=== PATIENT | female | born 1975 | race Caucasian/White ===

== ENCOUNTER 2020-07-14 12:28 | Outpatient (REF) | payer OTHER, SELFPAY ==
--- NOTE | ~2020-07-14 | MM_ITS ---
EXAMINATION: MM SCREENING DIGITAL BREAST TOMOSYNTHESIS, BILATERAL CLINICAL INFORMATION: Screening. Asymptomatic. The lifetime risk of breast cancer based on the Tyrer-Cuzick Model is 6.9%. COMPARISON: Mammography: May 22, 2018 and studies dating back to May 17, 2016 TECHNIQUE: Digital breast tomosynthesis is performed in both the craniocaudal and mediolateral oblique views along with computer-aided detection (CAD). Synthesized 2D images are generated from the tomosynthesis. FINDINGS: There are scattered areas of fibroglandular density (ACR BI-RADS breast composition Category b). There are no significant masses, abnormal calcifications, or other abnormalities. MM/MM tomosynthesis screening BI IMPRESSION: There are no significant changes from prior study. ASSESSMENT: BI-RADS 1: Negative RECOMMENDATION: Routine annual mammography screening. This patient's information was entered into a reminder system with a target due date for their next mammogram.
== END 2020-07-14 12:29 | disposition home or self-care (01) ==
LOC: HO.MAMMO 12:28
PROVIDERS: Visit Provider Internal Medicine
DX: Z12.31 Encounter for screening mammogram for malignant neoplasm of breast (principal)
CPT/HCPCS: 77063; 77067

== ENCOUNTER 2020-09-08 09:42 | Outpatient (REF) | payer OTHER, SELFPAY ==
[2020-09-08 12:12] LABS: Vitamin D 25-OH Total 29.2 ng/mL (>30)
[2020-09-08 12:20] LABS: Alanine Aminotransferase 10 U/L (0-31); Anion Gap 14 (12-20); Aspartate Amino Transferase 15 U/L (5-31); Blood Urea Nitrogen 10 mg/dL (9-16); Calcium 9.7 mg/dL (8.4-10.2); Carbon Dioxide 23 mmol/L (22-29); Chloride 107 mmol/L (96-108); Cholesterol 222 mg/dL; Estimated Glomerular Filt Rate > 60; Glucose Fasting 83 mg/dL (60-99); HDL Cholesterol 47 mg/dL; LDL Cholesterol Calculated 142 mg/dl; Potassium 4.3 mmol/L (3.3-5.1); Sodium 140 mmol/L (135-145); Triglycerides 165 mg/dL
== END 2020-09-08 09:43 | disposition home or self-care (01) ==
LOC: HO.HMGCLDS 09:42
PROVIDERS: PCP Internal Medicine; Visit Provider Internal Medicine
DX: Z00.00 Encounter for general adult medical examination without abnormal findings (principal); I10 Essential (primary) hypertension; I99.8 Other disorder of circulatory system; Z82.49 Family history of ischemic heart disease and other diseases of the circulatory system
CPT/HCPCS: 36415; 80048; 80061; 82306; 84450; 84460

== ENCOUNTER → 2020-09-27 14:49 | Outpatient (BNVA) | payer OTHER, SELFPAY | PROVIDERS: PCP Internal Medicine; Referring Provider Internal Medicine; Visit Provider Internal Medicine ==

== ENCOUNTER 2020-10-10 08:29 | Outpatient (REF) | payer OTHER, SELFPAY ==
--- NOTE | ~2020-10-10 | US_ITS ---
EXAMINATION: ULTRASOUND ABDOMINAL AORTA CLINICAL INFORMATION: Family history of aortic dissection COMPARISON: None TECHNIQUE: Doppler color and grayscale evaluation of the abdominal aorta and common iliac arteries FINDINGS: The abdominal aorta is normal in caliber. No aneurysm is seen. The proximal abdominal aorta measures 2.4 x 2.4 cm, mid 1.8 x 1.7 cm and distal 1.8 x 1.8 cm in AP and transverse dimension. Aortic peak velocity is normal measuring 84 cm/s. The visualized bilateral common iliac arteries are normal in caliber measuring 1.1 x 1 cm bilaterally. US/US abdominal aortic aneurysm IMPRESSION: Normal caliber abdominal aorta. No aneurysm is seen.
== END 2020-10-10 08:30 | disposition home or self-care (01) ==
LOC: HO.HMGCX 08:29
PROVIDERS: PCP Internal Medicine; Visit Provider Internal Medicine
DX: I71.4 Abdominal aortic aneurysm, without rupture (principal); Z82.49 Family history of ischemic heart disease and other diseases of the circulatory system
CPT/HCPCS: 76706

== ENCOUNTER → 2020-11-03 07:25 | Outpatient (REF) | payer OTHER, SELFPAY ==
--- NOTE | 2020-11-03 07:27 | CA_ITS ---
Transthoracic Echocardiogram Patient (Last, First, Middle): Mukund Mo, Gender: Female Date of : 1975 Age: 45 Procedure Date: 11/03/2020 Procedure Type: Transthoracic Echocardiogram Location: OP Height: 157.48 cm Weight: 75.75 kg BSA: 1.77 m2 Heart Rate: bpm BP: 130 / 80 mmHg Sql Server Dba: JOSÉ MIGUEL Dove MD: Chang Ramírez MD Criminology Professor: Adrian Lanza MD Symptoms: Z82.49 - Family history of ischemic heart disease and oth... Study Quality: Fair ECG Rhythm: Sinus Conclusions: - Essentially normal study Findings Left Ventricle Normal left ventricular size, thickness, and systolic function. The visually estimated ejection fraction is between 60-65%. Diastolic function is normal for age. Right Ventricle Normal right ventricular cavity size and systolic function. Atria Both atria are normal in size. There is no evidence of interatrial shunt. Aortic Valve Normal aortic valve structure and function. There is no aortic valve stenosis. There is no aortic valve regurgitation. Mitral Valve Normal mitral valve structure and function. There is trace mitral valve regurgitation. There is no mitral valve stenosis. Pulmonic Valve The pulmonic valve is likely normal. Tricuspid Valve Normal tricuspid valve structure. There is trace tricuspid valve regurgitation. The right ventricular systolic pressure is normal. The right ventricular systolic pressure is 20 mmHg. Normal right atrial pressure. There is no evidence of pulmonary hypertension. Great Vessels All visible segments of the aorta are normal in size. The pulmonary artery was not well visualized. Venous The inferior vena cava is normal in size and collapses greater than 50% with inspiration. Pericardium/Pleural There is no evidence of pericardial effusion. Prior Study Comparison No prior study available for comparison. Measurements 2D Linear Measurements IVSd: 1.00 0.6-0.9/0.6-1.0 cm LVIDd: 3.65 3.9-5.3/4.2-5.9 cm LVIDd Index: 2.06 2.4-3.2/2.2-3.1 cm/m2 LVIDs: 2.43 2.0-3.6 cm LVPWd: 1.05 0.7-1.1 cm Ao Root: 3.00 2.1-3.5 cm LA Diam: 2.80 2.7-3.8/3.0-4.0 cm LAIDs Index: 1.58 1.5-2.3 cm/m2 LV Mass: 142.03 67-162/88-224 g LV Mass Index: 80.24 43-95/49-115 g/m2 LVOT Diam: 2.10 3.0+(-)1.3 cm 2D Systolic Function EF 4C: 64.20 >55% EF 2C: 68.20 >55% EF BiP: 66.90 >55% Mitral Valve MV Pk E: 0.99 MV PK A: 1.01 MV Decel Time: 312.00 E/A: 1.00 E'Lateral: 12.70 E'Medial: 9.57 E/E' Med: 10.40 E/E' Lat: 7.80 PHT: 91.00 MVA PHT: 2.42 Decel Mills: 3.18 Aortic Valve AoV Pk Sanya: 1.75 AoV Mn Sanya: 1.24 AoV VTI: 0.35 AoV Pk Grad: 12.00 Aov Mn Grad: 7.00 ESTHER Cont.VTI: 3.03 LVOT LVOT Pk Sanya: 1.24 LVOT Mn Sanya: 0.85 LVOT VTI: 0.31 LVOT Pk Grad: 6.00 LVOT Mn Grad: 3.00 LVOT Diam: 2.10 LVOT Area: 3.46 Diastolic Function MV Pk E: 0.99 MV Pk A: 1.01 E/A: 1.00 E'Medial: 9.57 E/E' Med: 10.40 E' Laterial: 12.70 E/E' Lat: 7.80 Tricuspid Valve TR Pk Sanya: 2.06 TR Pk Grad: 17.00 RA Press: 3.00 RVSP: 20.00 Great Vessels Aorta Ao Root-2D: 3.00 2.0-3.7 cm Ao Asc: 3.10 2.1-3.4 cm Ao Arch: 2.60 Updated in Other Vendor System with Status of Final Adrian Lanza MD electronically signed on 11/03/2020 2:57:11 PM with status of Final
== END ==
LOC: HO.CARD 07:25
PROVIDERS: PCP Internal Medicine; Visit Provider Internal Medicine
DX: Z82.49 Family history of ischemic heart disease and other diseases of the circulatory system (principal)
CPT/HCPCS: 93306

== ENCOUNTER → 2020-11-09 13:26 | Outpatient (BNVA) | payer OTHER, SELFPAY | PROVIDERS: PCP Internal Medicine; Referring Provider Internal Medicine; Visit Provider Internal Medicine ==

== ENCOUNTER 2021-07-17 13:32 | Outpatient (REF) | payer OTHER, SELFPAY ==
--- NOTE | ~2021-07-17 | MM_ITS ---
EXAMINATION: MM SCREENING DIGITAL BREAST TOMOSYNTHESIS, BILATERAL CLINICAL INFORMATION: Screening. Asymptomatic. The lifetime risk of breast cancer based on the Tyrer-Cuzick Model is 7%. COMPARISON: Mammography: 07/14/2020, outside exams 05/22/2018, 05/21/2017 ([place]) TECHNIQUE: Digital breast tomosynthesis is performed in both the craniocaudal and mediolateral oblique views along with computer-aided detection (CAD). Synthesized 2D images are generated from the tomosynthesis. FINDINGS: There are scattered areas of fibroglandular density (ACR BI-RADS breast composition Category b). There are no significant masses, abnormal calcifications, or other abnormalities. Parenchymal pattern is similar to prior studies. There is no developing density or architectural abnormality. The axilla and skin contours are unremarkable. No significant changes. MM/MM tomosynthesis screening BI IMPRESSION: No mammographic evidence of malignancy. ASSESSMENT: BI-RADS 1: Negative RECOMMENDATION: Routine annual mammography screening. This patient's information was entered into a reminder system with a target due date for their next mammogram.
== END 2021-07-17 13:33 | disposition home or self-care (01) ==
LOC: HO.MAMMO 13:32
PROVIDERS: PCP Internal Medicine; Visit Provider Internal Medicine
DX: Z12.31 Encounter for screening mammogram for malignant neoplasm of breast (principal)
CPT/HCPCS: 77063; 77067

== ENCOUNTER 2022-09-12 08:23 | Outpatient (REF) | payer OTHER, SELFPAY ==
[2022-09-12 11:23] LABS: MANUAL DIFF FLAG NO
[2022-09-12 11:44] LABS: Basophils Percent Auto 0.5 % (0-2); Eosinophils Absolute Auto 0.1 X10*3/uL (0.0-0.4); Hematocrit 40.8 % (37.0-47.0); Hemoglobin 13.8 g/dl (12.0-16.0); Lymphocytes Absolute Auto 1.3 X10*3/uL (1.2-4.9); Lymphocytes Percent Auto 24.4 % (20-40); Mean Corpuscular HGB Conc 33.8 g/dl (31.0-35.0); Mean Corpuscular Hemoglobin 30.1 pg (27.0-33.0); Mean Corpuscular Volume 88.9 fL (80.0-98.0); Mean Platelet Volume 10.3 fL (9.4-12.3); Monocytes Absolute Auto 0.6 X10*3/uL (0.1-1.2); Monocytes Percent Auto 10.5 % (2-11); Neutrophils Absolute Auto 3.4 x10*3/uL (2.0-8.3); Neutrophils Percent Auto 62.6 % (45-73); Platelet Count 380 X10*3/uL (160-400); Red Blood Count 4.59 X10*6/uL (4.20-5.50); Red Cell Distribution Width 12.4 % (11.0-16.0); White Blood Count 5.5 X10*3/uL (4.8-10.8)
[2022-09-12 12:04] LABS: Alanine Aminotransferase 20 U/L (0-31); Anion Gap 11 (12-20); Aspartate Amino Transferase 20 U/L (5-31); Blood Urea Nitrogen 10 mg/dL (9-16); Calcium 9.4 mg/dL (8.4-10.2); Carbon Dioxide 25 mmol/L (22-29); Chloride 109 mmol/L (96-108); Cholesterol 213 mg/dL; Estimated Glomerular Filt Rate > 60; Glucose Fasting 87 mg/dL (60-99); HDL Cholesterol 36 mg/dL; LDL Cholesterol Calculated 125 mg/dl; Potassium 4.4 mmol/L (3.3-5.1); Sodium 141 mmol/L (135-145); Triglycerides 262 mg/dL
[2022-09-12 12:22] LABS: Vitamin D 25-OH Total 37.4 ng/mL (>30)
== END 2022-09-12 08:24 | disposition home or self-care (01) ==
LOC: HO.HMGCLDS 08:23
PROVIDERS: PCP Internal Medicine; Visit Provider Internal Medicine
DX: Z00.01 Encounter for general adult medical examination with abnormal findings (principal); E66.9 Obesity, unspecified; I99.8 Other disorder of circulatory system; E55.9 Vitamin D deficiency, unspecified; E78.5 Hyperlipidemia, unspecified; Z82.49 Family history of ischemic heart disease and other diseases of the circulatory system
CPT/HCPCS: 36415; 80048; 80061; 82306; 84450; 84460; 85025

== ENCOUNTER → 2022-10-21 07:54 | Outpatient (BNVA) | payer OTHER, SELFPAY | PROVIDERS: Visit Provider Physician Assistant ==

== ENCOUNTER 2022-12-05 15:47 | Outpatient (AMB) | payer OTHER, SELFPAY ==
--- NOTE | 2022-12-05 16:08 | MHC.PC.OV ---
Vital Signs 12/05/22 16:10 Height 5 ft 2 in Weight 188 lb 8 oz BMI 34.5 BP 142/94 H Blood Pressure Location Rt brachial Position Sitting Pulse 73 Pulse Source Pulse Oximeter Pulse Oximetry (%) 97 Oxygen Delivery Method Room Air Intake Visit Reasons: b/p check Allergies No Known Allergies Allergy (Verified 12/05/22 16:29) Medication List - Last Reconciled 12/05/22 by Yas Concepcion MD bisacodyl (Dulcolax (bisacodyl)) 20 mg (4 x 5 mg) PO ONCE 1 day calcium carbonate (Calcium) 600 mg PO DAILY cetirizine 10 mg PO DAILY PRN etonogestrel (Nexplanon) subdermal ferrous sulfate 325 mg PO DAILY L.ac,kelly,par,rha-B.ani,tien-inu 10 billion cell -100 mg (Probitoic Digestive Support (6 strain)) caps PO lisinopril 10 mg PO DAILY multivitamin 1 tab PO DAILY polyethylene glycol 3350 (Miralax) 238 grams PO ONCE PRN 1 day Tobacco use date assessed: 12/05/22 Dental Screening Dental Screen Date: 12/05/22 Did you have a dental visit in the last 12 months?: No Did you have a dental problem in the last 6 months where you did not have access to dental care?: No Was dental information given to patient?: No HPI b/p check HPI Details 47-year-old lady here today for follow-up on her hypertension, currently taking lisinopril 10 mg daily , and has been following a low-salt diet, but has been noticing that her blood pressure still remains elevated. Denies any accompanying headache, no dizziness, no chest pain or shortness of breath She also has been having difficulty losing weight ever since she was placed on Nexplanon 2 years ago. Has an appointment already with her OB at [facility] later this year, to discuss removal of the Nexplanon. [facility] Medical History (Updated 12/05/22 @ 16:30 by Yas Concepcion MD) Dyslipidemia Environmental and seasonal allergies Essential hypertension Family history of early CAD Fluctuating blood pressure Obesity (BMI 30.0-34.9) Surgical History History of loop electrical excision procedure (LEEP) Hx of hand surgery Family History Paternal Grandfather Acute posterior myocardial infarction, Onset Age: 62 Paternal Grandmother CAD (coronary artery disease), Onset Age: 62 Paternal Aunt CAD (coronary artery disease), Onset Age: 68 Father Pancreatic cancer Substance use disorder Mental health disorder Mother Mental health disorder Other TIA (transient ischemic attack) Social History Housing: House Alcohol intake: current Patient Tobacco Use Status: Never used Tobacco e-Cigarette/Vaping Use: Never Used service: No Current occupational status: employed Cognitive needs: No Hearing needs: No Vision needs: Yes Questionnaire Thrive Questionnaire Date Thrive assessed: 09/05/22 AUDIT C Alcohol Use Questionnaire (AUDIT-C) 1. How often do you have a drink containing alcohol?: Monthly or less 2. How many drinks containing alcohol do you have on a typical day when you are drinking?: 1 or 2 3. How often do you have six or more drinks on one occasion?: Never Total Score: 1 Score Reviewed/Action Taken: Yes VIJAY-7 AMB Questionnaire VIJAY-7 Date VIJAY - 7 assessed: 09/05/22 Source: Developed by Drs. Collin Mello, Jesusita Rodriguez, Jeevan Crooks and colleagues, with an educational jesús from [employer]. Review of Systems Const All systems reviewed & are unremarkable except as noted in HPI and below ENT Reports Normal hearing present Neuro Reports Normal hearing present and Denies Abnormal speech present Physical exam (Primary Care) Vital Signs: Last Vital Signs Pulse 73 12/05/22 16:10 BP 142/94 H 12/05/22 16:10 Pulse Ox 97 12/05/22 16:10 Oxygen Delivery Method Room Air 12/05/22 16:10 BMI result Body Mass Index 34.5 BMI Assessment/Plan discussion: High BMI High, discussed plan: lifestyle, weight reduction, dietary and physical activity Tobacco/Smoking Status: Tobacco use Status Tobacco use date assessed 12/05/22 12/05/22 16:13 Patient Tobacco Use Status Never used Tobacco 12/05/22 16:09 e-Cigarette/Vaping Use Never Used 12/05/22 16:09 Thrive Assessment: Date of Thrive Assessment Date Thrive assessed 09/05/22 12/05/22 16:09 Const General: comfortable, no acute distress, alert, awake and Physically active Nutritional Appearance: obese Orientation/consciousness: patient oriented x3 HENMT Head: Yes normocephalic General nose exam: Normal external nose present Face and sinus: Yes face symmetric Mouth: Normal oral and palatal mucosa present, oropharynx normal and moist mucous membranes Eyes General: appearance normal, both eyes and all related structures Neck Neck: Yes full ROM, Yes no lymphadenopathy and Yes supple Thyroid: Thyroid normal Resp Effort & Inspection: normal respiratory effort and able to speak in complete sentences Auscultation: clear to auscultation bilaterally Cardio Palpation: normal PMI Rate: regular rate Rhythm: regular rhythm Heart sounds: S1 normal heart sound present and S2 normal heart sound present GI Inspection: Yes normal to inspection Palpation (GI): Soft to palpation, nontender, no guarding and no masses Auscultation: normal bowel sounds General: Yes no CVA tenderness and Yes deferred Back/Spine/Pelvis Back: no CVA tenderness and No back tenderness Cervical Spine: cervical ROM normal Thoracic/Lumbar Spine: thoracic and lumbar spine normal to inspection Skin General skin exam: no rashes or lesions noted and other (Tattoo on lower back) Hair: normal Nails: normal Neuro General: patient oriented x3 Cranial nerves: Yes Normal hearing present Speech: No Abnormal speech present Assessment and Plan Assessment & Plan (1) Essential hypertension: Code(s): I10 - Essential (primary) hypertension Plan: Discontinued lisinopril and switched to lisinopril-HCTZ 10-12.5 mg per tablet to take once a day in a.m.. New with adhering to a low-salt diet, continue with regular exercise and managing stress levels. Return to clinic in 1-2 weeks after starting medication to see nurse navigator to check blood pressure. (2) Dyslipidemia: Code(s): E78.5 - Hyperlipidemia, unspecified Orders: Orders Basic Metabolic Panel Fasting Today E78.5 - Hyperlipidemia, unspecified, I10 - Essential (primary) hypertension Lipid Panel Today E78.5 - Hyperlipidemia, unspecified, I10 - Essential (primary) hypertension Medications: New lisinopril-hydrochlorothiazide 10-12.5 mg 1 tab PO DAILY 30 tabs 0RF Discontinued lisinopril Discontinued Reason: Doctor's Order 10 mg PO DAILY 90 tabs 1RF Coding Level of Care Code Est Pt Level 3 (65640) Diagnoses Essential hypertension I10 Dyslipidemia E78.5
[2022-12-05 16:10] VITALS: BP 142/94; PULSE 73; O2SAT 97; BMI 34.5
== END 2022-12-05 16:41 | disposition home or self-care (01) ==
PROVIDERS: PCP Internal Medicine; Visit Provider Internal Medicine
DX: I10 Essential (primary) hypertension (principal); E78.5 Hyperlipidemia, unspecified
CPT/HCPCS: 99213

== ENCOUNTER 2023-01-21 09:11 | Outpatient (REF) | payer OTHER, SELFPAY ==
[2023-01-21 22:04] LABS: CT PCR NOT DETECTED (Not Detect.); NG PCR NOT DETECTED (Not Detect.)
[2023-01-22 15:39] LABS: BV Int Neg Control Negative (Negative); BV Int Pos Control Positive (Positive)
[2023-01-24 02:59] LABS: HPV mRNA E6/E7 rflx Not Detected (Not Detected)
== END 2023-01-21 09:12 | disposition home or self-care (01) ==
LOC: HO.LNP 09:11
PROVIDERS: Visit Provider Advanced Practice Midwife
DX: Z01.419 Encounter for gynecological examination (general) (routine) without abnormal findings (principal); Z11.51 Encounter for screening for human papillomavirus (HPV); Z20.2 Contact with and (suspected) exposure to infections with a predominantly sexual mode of transmission
CPT/HCPCS: 0353U; 87480; 87510; 87624; 87660; 88142

== ENCOUNTER 2023-01-21 09:11 | Outpatient (AMB) | payer OTHER, SELFPAY ==
--- NOTE | 2023-01-21 09:21 | MHC.OFFVIS ---
Intake Vital Signs 01/21/23 09:22 Height 5 ft 2 in Weight 186 lb BMI 34.0 BP 136/90 H Intake Visit Reasons: New patient Annual Intake Note: would like to have nexplanon removal MEAGHAN, has been having irregular periods Server Engineer Required: No Information Interpreted: non-clinical & clinical Hearing Impaired Teacher: Hearing Impaired Teacher Present (Aidyn) Allergies No Known Allergies Allergy (Verified 01/21/23 09:25) Medication List - Last Reconciled 01/21/23 by Carlie Alonzo CNM bisacodyl (Dulcolax (bisacodyl)) 20 mg (4 x 5 mg) PO ONCE 1 day blood pressure monitor As directed calcium carbonate (Calcium) 600 mg PO DAILY cetirizine 10 mg PO DAILY PRN etonogestrel (Nexplanon) subdermal ferrous sulfate 325 mg PO DAILY L.ac,bul,par,rha-B.ani,tien-inu 10 billion cell -100 mg (Probitoic Digestive Support (6 strain)) caps PO lisinopril-hydrochlorothiazide 10-12.5 mg 1 tab PO DAILY multivitamin 1 tab PO DAILY polyethylene glycol 3350 (Miralax) 238 grams PO ONCE PRN 1 day Is last menstrual period known: Yes Last menstrual period: 12/20/22 Post menopausal: No HPI New patient Annual HPI Details 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 She is in a monogamous relationship and she and her partner have had multiple discussions and he has an appointment at the beginning of February with his urologist to have a vasectomy. They know that they need to follow sperm counts until they are 0 until they can have unprotected sex. But she is ready to have this removed when it can be arranged. [facility] needed of a reliable method of control and was not interested in pills at the time because she got on the pills way back when. She is healthy other than that though she is still challenged by some elevated blood pressures which she is monitoring and on a low dose of a medication at this time and she has of an appointment with her primary coming up to review it and come up with further plans as needed. She has had irregular bleeding with the Nexplanon and also weight gain she does wonder if the blood pressure could be related as well. She is rated have it out soon she walks and bikes and hikes for exercise and tries to eat well. She has mammograms ordered and gets them every year and just needs to schedule hers. COUNT [facility] Medical History (Updated 01/21/23 @ 11:16 by Carlie Alonzo CNM) Labile hypertension Essential hypertension Dyslipidemia Environmental and seasonal allergies Obesity (BMI 30.0-34.9) Fluctuating blood pressure Family history of early CAD Surgical History (Updated 01/21/23 @ 11:16 by Carlie Alonzo CNM) History of loop electrical excision procedure (LEEP) Hx of hand surgery Family History Paternal Grandfather Acute posterior myocardial infarction, Onset Age: 62 Paternal Grandmother CAD (coronary artery disease), Onset Age: 62 Paternal Aunt CAD (coronary artery disease), Onset Age: 68 Father Pancreatic cancer Substance use disorder Mental health disorder Mother Mental health disorder Other TIA (transient ischemic attack) Social History Housing: House Alcohol intake: current Patient Tobacco Use Status: Never used Tobacco e-Cigarette/Vaping Use: Never Used service: No Current occupational status: employed Cognitive needs: No Hearing needs: No Vision needs: Yes Female Reproductive History Menstrual Age of Menarche: 16 Duration of menses: other Date of last menstrual period: 12/20/22 control method: implanted Total pregnancies: 1 Full term: 1 Number of Living Children: 1 History of abnormal pap smear: Yes Date of Mammogram: 07/17/21 Physical Exam Vital Signs: Last Vital Signs BP 136/90 H 01/21/23 09:22 BMI result Body Mass Index 34.0 Const General: healthy appearing, comfortable, no acute distress, well developed and alert Nutritional Appearance: average body habitus Orientation/consciousness: patient oriented x3 Limitations: no limitations HEENT Head: Yes normocephalic Neck Neck: Yes normal visual inspection Chest Chest palpation & inspection: normal inspection of the chest Breast/axilla inspection: normal inspection of the breasts and normal inspection of the axillae Breast/axilla palpation: normal palpation of the breasts and normal palpation of the axillae Resp Effort & Inspection: normal respiratory effort GI Inspection: Yes normal to inspection, No Abdominal wall edema and No distended Palpation (GI): Soft to palpation and nontender Other: Normal pelvic exam vagina pink moist cervix pink moist multiparous and consistent with status post LEEP. Did not bleed with Pap smear more than slight spotting at os. Cervical mucus within normal limits. Cervix firm parous long thick closed uterus not enlarged adnexa not enlarged nothing feels tender very good tone with Kegel. General: Yes bladder normal to palpation External Female Exam: normal external appearance and normal appearance of the urethra Speculum Exam - Vagina: normal appearance of the vagina, normal palpation and normal vaginal discharge Speculum Exam - Cervix: normal appearance of the cervix, normal palpation and nontender Bimanual exam- vagina & uterus: normal bimanual exam, normal palpation, uterine size normal, bladder normal to palpation, consistency normal, normal palpation, uterine mobility normal, uterine shape normal, No Cervical tenderness present, non-tender and no cervical motion tenderness Bimanual Exam- Adnexa, other: normal adnexae, no masses, normal and No adnexal tenderness Neuro General: patient oriented x3 Assessment & Plan Assessment & Plan (1) Labile hypertension: Code(s): R09.89 - Other specified symptoms and signs involving the circulatory and respiratory systems (2) Obesity (BMI 30.0-34.9): Code(s): E66.9 - Obesity, unspecified (3) History of loop electrical excision procedure (LEEP): Comment: 6 yrs ago Code(s): Z98.890 - Other specified postprocedural states (4) Breast cancer screening: Comment: Breast exam within normal limits will be scheduling mammogram soon Code(s): Z12.39 - Encounter for other screening for malignant neoplasm of breast (5) Well woman exam with routine gynecological exam: Code(s): Z01.419 - Encounter for gynecological examination (general) (routine) without abnormal findings (6) Encounter for surveillance of Nexplanon subdermal contraceptive: Code(s): Z30.46 - Encounter for surveillance of implantable subdermal contraceptive Plan -----Discussed in this visit the following: healthy balanced diet, regular and consistent exercise, getting recommended health screens, doing the best she can for her particular health concerns, kegel exercises, pap smear screening and followup recommendations, mammography screening and SBE, normal changes in cycles in her life stage--- .-Pap smear was done follow-up on her LEEP from years ago. She says her follow-up Paps in the past were normal. She was open to screening for STIs.. Lengthy discussion took place a about the Nexplanon and its side effects with she certainly could include with her weight gain and irregular bleeding patterns. Discussed her and her partner's very well thought out plan for him to have a vasectomy and so she may schedule her Nexplanon removal whenever she wishes she and he will use protection until sperm counts are 0. I discussed how I will prep the site and remove the Nexplanon and that will be scheduled at her convenience. She is going to be scheduling her mammogram. She will be following up with her primary about the hypertension is very soon. Orders: Orders Bacterial Vaginosis Panel Today Z01.419 - Encounter for gynecological examination (general) (routine) without abnormal findings CT NG by PCR Today Z01.419 - Encounter for gynecological examination (general) (routine) without abnormal findings Pap Smear Today Z01.419 - Encounter for gynecological examination (general) (routine) without abnormal findings Coding Level of Care Code New Pt Prev Care 40-64y(46066) Diagnoses Labile hypertension R09.89 Obesity (BMI 30.0-34.9) E66.9 History of loop electrical excision procedure (LEEP) Z98.890 Breast cancer screening Z12.39 Well woman exam with routine gynecological exam Z01.419 Encounter for surveillance of Nexplanon subdermal contraceptive Z30.46
[2023-01-21 09:22] VITALS: BP 136/90; BMI 34.0
== END 2023-01-21 10:47 | disposition home or self-care (01) ==
PROVIDERS: Visit Provider Advanced Practice Midwife
DX: Z01.419 Encounter for gynecological examination (general) (routine) without abnormal findings (principal); R09.89 Other specified symptoms and signs involving the circulatory and respiratory systems; E66.9 Obesity, unspecified; Z98.890 Other specified postprocedural states; Z30.46 Encounter for surveillance of implantable subdermal contraceptive
CPT/HCPCS: 99386

== ENCOUNTER 2023-02-18 14:58 | Outpatient (AMB) | payer OTHER, SELFPAY ==
[2023-02-18 15:18] VITALS: BP 134/72; BMI 34.7
--- NOTE | 2023-02-18 15:18 | A.OFFVIS_ITS ---
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 Information Interpreted: non-clinical & clinical Infection Prevention Coordinator: Infection Prevention Coordinator Present ([place]) Allergies No Known Allergies Allergy (Verified 02/18/23 15:21) Medication List - Last Reconciled 02/18/23 by Carlie Alonzo CNM bisacodyl (Dulcolax (bisacodyl)) 20 mg PO ONCE blood pressure monitor As directed calcium carbonate (Calcium) 600 mg PO DAILY cetirizine 10 mg PO DAILY PRN etonogestrel (Nexplanon) subdermal ferrous sulfate 325 mg PO DAILY L.ac,bul,par,rha-B.ani,tien-inu 10 billion cell -100 mg (Probitoic Digestive Support (6 strain)) caps PO lisinopril-hydrochlorothiazide 10-12.5 mg 1 tab PO DAILY multivitamin 1 tab PO DAILY polyethylene glycol 3350 (Miralax) 238 grams PO ONCE PRN 1 day Is last menstrual period known: Yes Last menstrual period: 02/10/23 Post menopausal: No HPI Nexplanon Removal HPI Details Patient is here to have her Nexplanon removed she thinks it is making her gain weight and she has had crazy be irregular bleeding with it and her partner got a vasectomy and they are using condoms until he gets the all clear on the negative sperm count. She has had it a couple of years plus. PFS Medical History Labile hypertension Essential hypertension Dyslipidemia Environmental and seasonal allergies Obesity (BMI 30.0-34.9) Fluctuating blood pressure Family history of early CAD Surgical History History of loop electrical excision procedure (LEEP) Hx of hand surgery Family History Paternal Grandfather Acute posterior myocardial infarction, Onset Age: 62 Paternal Grandmother CAD (coronary artery disease), Onset Age: 62 Paternal Aunt CAD (coronary artery disease), Onset Age: 68 Father Pancreatic cancer Substance use disorder Mental health disorder Mother Mental health disorder Other TIA (transient ischemic attack) Social History Housing: House Alcohol intake: current Patient Tobacco Use Status: Never used Tobacco e-Cigarette/Vaping Use: Never Used service: No Current occupational status: employed Cognitive needs: No Hearing needs: No Vision needs: Yes Female Reproductive History Menstrual Age of Menarche: 16 Date of last menstrual period: 02/10/23 control method: permanent sterilization Permanent Sterilization: Vasectomy and implanted Date of last pap smear: 01/22/23 (negative) Physical Exam Vital Signs: Last Vital Signs BP 134/72 02/18/23 15:18 BMI result Body Mass Index 34.7 Const Other: Nexplanon easily palpable left arm Office Procedures Contraception Insert/Removal Details Details: Nexplanon Removal Procedure The patient was placed in a supine position with her non dominant hand resting under her head. The insertion site was located: 8-10cm from the medial epicondyle notch of the humerus, posterior to the sulcus, between the triceps and biceps muscle. The area of the previous implant was identified and the distal tip located. This area was cleansed with an alcohol prep and 3 ml of 1% Lidocaine on a 25 gauge needle and syringe was utilized for adequate anesthesia to the insertion site. After ascertaining adequate anesthesia, the area was prepped with Betadine solution. The skin over the distal tip was incised with a #11 blade scalpel and the capsule was located and entered freeing the implant from the canal. The implant was removed with a gentle tug using a mosquito clamp and removed intact. Direct pressure was applied to the insertion site for hemostasis, minimal bleeding was observed. Steri strips, Tegaderm covering, gauze pads, and Venessa wrap dressing were secured with paper tape. . The patient tolerated the procedure well and left the office in good condition. 45351 - Removal Results AMB Test Urine AMB Test Urine Negative Last Edit by FAY Martin on 02/18/23 15:32 Results Reviewed Results Reviewed: Laboratory Last Values Tst Clinic Negative 02/18/23 15:32 Assessment & Plan Assessment & Plan (1) Encounter for surveillance of Nexplanon subdermal contraceptive: Code(s): Z30.46 - Encounter for surveillance of implantable subdermal contraceptive (2) Encounter for Nexplanon removal: Code(s): Z30.46 - Encounter for surveillance of implantable subdermal contraceptive Plan Reviewed danger signs of infection or bleeding. Patient instructed to keep the pressure dressing on for several hours not to use excess Force with that arm for instance no weightlifting. Keep the Tegaderm on for the next 3 days to prevent infection. Expect some bleeding around the site. Orders: Orders AMB HCG Urine Test Today Z32.02 - Encounter for test, result negative AMB Nexplanon/Implanon Insertion - Patient Supply Today Z30.46 - Encounter for surveillance of implantable subdermal contraceptive Coding Level of Care Code Est Pt Level 3 (99233) Diagnoses Encounter for surveillance of Nexplanon subdermal contraceptive Z30.46 Encounter for Nexplanon removal Z30.46 CPT Codes Details - Contraception: 21297 - Removal ([id number])
== END 2023-02-18 16:16 | disposition home or self-care (01) ==
PROVIDERS: PCP Internal Medicine; Visit Provider Advanced Practice Midwife
DX: Z30.46 Encounter for surveillance of implantable subdermal contraceptive (principal); Z32.02 Encounter for pregnancy test, result negative
CPT/HCPCS: 11982

== ENCOUNTER → 2023-02-18 14:58 | Outpatient (BNVA) | payer OTHER, SELFPAY | PROVIDERS: PCP Internal Medicine; Visit Provider Advanced Practice Midwife | DX: Z30.46 Encounter for surveillance of implantable subdermal contraceptive (principal) | CPT/HCPCS: 11982; 81025 ==

== ENCOUNTER 2023-05-14 09:34 | Day surgery (SDC) | payer OTHER, SELFPAY ==
--- NOTE | 2023-05-13 10:36 | HO.ANESPROP2 ---
Documented by User: Rossi Camp NP 05/13/23 10:37 HPI - Anesthesia Eval Consult details Narrative: 48yo F for Colonoscopy PMFSH Active Problems Active Problems: All Active Problems (Updated 02/18/23 @ 16:19 by Carlie Alonzo CNM) Encounter for Nexplanon removal (Acute) Encounter for surveillance of Nexplanon subdermal contraceptive (Acute) Well woman exam with routine gynecological exam (Acute) Breast cancer screening (Acute) History of loop electrical excision procedure (LEEP) (Acute) Labile hypertension (Acute) Essential hypertension (Acute) Encounter for screening colonoscopy (Acute) Dyslipidemia (Acute) Sinusitis (Acute) Family history of aortic dissection (Acute) Environmental and seasonal allergies (Acute) Obesity (BMI 30.0-34.9) (Acute) Fluctuating blood pressure (Acute) Family history of early CAD (Acute) Past Medical History Medical History Labile hypertension Essential hypertension Dyslipidemia Environmental and seasonal allergies Obesity (BMI 30.0-34.9) Fluctuating blood pressure Family history of early CAD Family History Family History Paternal Grandfather Acute posterior myocardial infarction, Onset Age: 62 Paternal Grandmother CAD (coronary artery disease), Onset Age: 62 Paternal Aunt CAD (coronary artery disease), Onset Age: 68 Father Pancreatic cancer Substance use disorder Mental health disorder Mother Mental health disorder Other TIA (transient ischemic attack) Surgical History Surgical History History of loop electrical excision procedure (LEEP) Hx of hand surgery Social History Social History Housing: House Alcohol intake: current Alcohol intake frequency: does not drink Patient Tobacco Use Status: Never used Tobacco e-Cigarette/Vaping Use: Never Used Are you DNR?: No Advance Directives: No Advance Directives Information Provided: Yes Nutrition Risks: No Nutritional Risk service: No Current occupational status: employed Cognitive needs: No Hearing needs: No Vision needs: Yes Meds Allergies Allergy/AdvReac Type Severity Reaction Status Date / Time No Known Allergies Allergy Verified 02/18/23 15:21 Home Medications Medication Instructions Recorded Confirmed Last Taken Type cetirizine 10 mg tablet 10 mg PO DAILY PRN 09/08/20 02/18/23 Unknown History multivitamin 1 tab PO DAILY 09/08/20 02/18/23 Unknown History L.acid,bul,para,rham-B.anim,long cap PO 09/05/22 02/18/23 Unknown History 10 billion cell-inulin 100 mg capsule (Probitoic Digestive Support (6 strain)) calcium carbonate 600 mg calcium 600 mg PO DAILY 09/05/22 02/18/23 Unknown History (1,500 mg) tablet (Calcium) etonogestrel 68 mg subdermal subdermal 09/05/22 02/18/23 Unknown History implant (Nexplanon) ferrous sulfate 325 mg (65 mg 325 mg PO DAILY 09/05/22 02/18/23 Unknown History iron) tablet Assessment and Plan Assessment Anesthesia Assessment: Chart Reviewed Documented by User: Mis De La O MD 05/14/23 10:18 [facility] Past Medical History Medical History Labile hypertension Essential hypertension Dyslipidemia Environmental and seasonal allergies Obesity (BMI 30.0-34.9) Fluctuating blood pressure Family history of early CAD Family History Family History Paternal Grandfather Acute posterior myocardial infarction, Onset Age: 62 Paternal Grandmother CAD (coronary artery disease), Onset Age: 62 Paternal Aunt CAD (coronary artery disease), Onset Age: 68 Father Pancreatic cancer Substance use disorder Mental health disorder Mother Mental health disorder Other TIA (transient ischemic attack) Family history of problems with anesthesia: No Surgical History Surgical History History of loop electrical excision procedure (LEEP) Hx of hand surgery History of Problems with Anesthesia: No Social History Social History (Reviewed 02/18/23 @ 15:22 by HARJINDER Martin Housing: House Alcohol intake: current Alcohol intake frequency: does not drink Patient Tobacco Use Status: Never used Tobacco e-Cigarette/Vaping Use: Never Used Are you DNR?: No Advance Directives: No Advance Directives Information Provided: Yes Nutrition Risks: No Nutritional Risk service: No Current occupational status: employed Cognitive needs: No Hearing needs: No Vision needs: Yes Meds Allergies Allergy/AdvReac Type Severity Reaction Status Date / Time No Known Allergies Allergy Verified 02/18/23 15:21 Home Medications Medication Instructions Recorded Confirmed Last Taken Type cetirizine 10 mg tablet 10 mg PO DAILY PRN 09/08/20 02/18/23 Unknown History multivitamin 1 tab PO DAILY 09/08/20 02/18/23 Unknown History L.acid,bul,para,rham-B.anim,long cap PO 09/05/22 02/18/23 Unknown History 10 billion cell-inulin 100 mg capsule (Probitoic Digestive Support (6 strain)) calcium carbonate 600 mg calcium 600 mg PO DAILY 09/05/22 02/18/23 Unknown History (1,500 mg) tablet (Calcium) etonogestrel 68 mg subdermal subdermal 09/05/22 02/18/23 Unknown History implant (Nexplanon) ferrous sulfate 325 mg (65 mg 325 mg PO DAILY 09/05/22 02/18/23 Unknown History iron) tablet Exam Airway Mallampati Class: II TM Dist: >3cm Neck ROM: Full Heart: rrr Lungs: cta Assessment and Plan Assessment Anesthesia Assessment: Anesthesia Plan Discussed Final Anesthetic Review Family History of Problems with Anesthesia: No History of Problems with Anesthesia: No NPO: Yes ASA Class: II Final Preanesthetic Review: No Changes in Pt Med Stat, Meds/Allgs Chart Reviewed and Consent Obtained/Reviewed Patient Risk: Intermediate Procedure Risk: Low Anesthetic Plan Anesthetic Plan: MAC: Disposition: Standard PACU
[2023-05-14 10:00] VITALS: BMI 34.0
[2023-05-14 10:10] VITALS: BP 148/51; PULSE 82; RESP 18; TEMP 36.6; O2SAT 97
--- NOTE | 2023-05-14 10:10 | P.HPSUR_ITS ---
Pre-Procedural Eval Section A Date of Service: 05/14/23 Section B Chief Complaint: Encounter for screening for malignant neoplasm of Relevant Family History (Specify if Yes): No Relevant Social History: None Present Medications: see Short Stay Collaborative assessment Medical History: Significant History (Labile hypertension Essential hypertension Dyslipidemia Environmental and seasonal allergies Obesity (BMI 30.0-34.9) Fluctuating blood pressure Family history of early CAD) History of Previous Operations: Relevant previous surgery/procedure and date(s) (History of loop electrical excision procedure (LEEP) Hx of hand surgery) Allergies: Allergies Allergy/AdvReac Type Severity Reaction Status Date / Time No Known Allergies Allergy Verified 02/18/23 15:21 Review of Systems Sugical H&P ROS: Negative: Constitution, Cardiovascular, Respiratory, Neurolo gical, Psychiatric, Hem-Onc, Allergic/Immunologic, Gastrointestinal, Genitourinary, Musculoskeletal, Integumentary, Endocrine and Eyes/Ears/Nose/Throat Exam Surgical H&P Exam: Normal: HEENT, Normal: Heart, Normal: Lungs, Normal: Extremities, Normal: Abdomen, Normal: Skin and Normal: Neurological Plan Diagnosis/Plan: Unchanged I have reviewed the history and physical and performed a pertinent physical examination on my patient. No changes have occurred unless specified. Time Spent With Patient Time: Total time managing care of this patient today ____ minutes.
[2023-05-14 10:19] LABS: UPreg QC Valid YES; Urine Pregnancy NEGATIVE (NEGATIVE)
[2023-05-14] MEDS: Lactated Ringers 1,000 ML 100 ML IVCONT (10:28)
--- NOTE | 2023-05-14 11:23 | W.PM.OPN ---
Operative Note Operative Note Date of Service: 05/14/23 Narrative: Operative Information Procedure Description: Colonoscopy Indication: screening Anesthesia: MAC COLONOSCOPY Instrument: Olympus variable stiffness pediatric scope 190L Colonoscopy Monitoring: Vital signs and clinical assessment, continuous EKG monitoring, Pulse oximetry, Carbon Dioxide monitoring and blood pressure monitoring were done throughout the procedure. Colon withdrawal time was 8 minutes. Procedure: The patient was placed in the left lateral decubitis position and pre-procedure medications were administered. After a digital rectal examination of the ano-rectum, the video colonoscope was inserted into the rectum and advanced through the colon to the cecum/TI. The colonoscope was slowly withdrawn in a retrograde panoramic fashion and the colon mucosa was carefully examined including a retroflexed view of the rectum. Findings and interventions are described below. Procedure Difficulty: easy Findings: Terminal Ileum-normal Cecum: 10 mm sessile polyp removed with cold snare with one clip applied for hemostasis Ascending Colon: normal Transverse Colon -normal Descending Colon:normal Sigmoid Colon: x 1 sessile polpy 8-10 mm removed with cold snare Rectum: Retroflexion with small internal hemorrhoids, grade I Anorectum - normal Colon preparation: [place] Bowel Preparation Scale Right colon; 3 Transverse colon: 3 Left colon; 3 (0 = Unprepared colon segment with mucosa not seen due to solid stool that cannot be cleared. 1 = Portion of mucosa of the colon segment seen, but other areas of the colon segment not well seen due to staining, residual stool and/or opaque liquid. 2 = Minor amount of residual staining, small fragments of stool and/or opaque liquid, but mucosa of colon segment seen well. 3 = Entire mucosa of colon segment seen well with no residual staining, small fragments of stool or opaque liquid) Impression and Post Procedure Diagnosis: polyps internal hemorrhoids Plan: High fiber diet leaflet Avoid straining at stool, epsom salts and sitz bath, anusol supps or cream Repeat Colonoscopy in 5 years due to polyps or earlier if clinically indicated Above findings were reviewed with the patient and relevant handouts were provided if indicated.
[2023-05-14 11:44] VITALS: BP 121/72; PULSE 73; RESP 16; TEMP 36.4; O2SAT 96
[2023-05-14 11:59] VITALS: BP 141/92; PULSE 64; RESP 16; TEMP 36.4; O2SAT 100
== END 2023-05-14 12:19 | disposition home or self-care (01) ==
PROVIDERS: Nurse Practitioner; PCP Internal Medicine; Visit Provider Internal Medicine Gastroenterology
PROC: 0DJD8ZZ Inspection of Lower Intestinal Tract, Via Natural or Artificial Opening Endoscopic (ICD-10-PCS; CPT 45378; principal; 2023-05-14 11:50)
DX: Z12.11 Encounter for screening for malignant neoplasm of colon (principal); D12.0 Benign neoplasm of cecum; D12.5 Benign neoplasm of sigmoid colon; K64.0 First degree hemorrhoids; I10 Essential (primary) hypertension; R09.89 Other specified symptoms and signs involving the circulatory and respiratory systems; E78.5 Hyperlipidemia, unspecified; E66.9 Obesity, unspecified; Z68.33 Body mass index [BMI] 33.0-33.9, adult; J30.2 Other seasonal allergic rhinitis; Z79.899 Other long term (current) drug therapy
CPT/HCPCS: 45385; 81025; 88305; J2704

== ENCOUNTER → 2023-05-14 09:34 | Outpatient (BNV) | payer OTHER, SELFPAY | PROVIDERS: PCP Internal Medicine; Visit Provider Internal Medicine Gastroenterology | DX: Z12.11 Encounter for screening for malignant neoplasm of colon (principal); D12.0 Benign neoplasm of cecum; D12.5 Benign neoplasm of sigmoid colon; K64.0 First degree hemorrhoids | CPT/HCPCS: 45385 ==

== ENCOUNTER 2023-08-26 07:16 | Outpatient (REF) | payer OTHER, SELFPAY | END 2023-08-26 07:17 | disposition home or self-care (01) | LOC: HO.MAMMO 07:16 | PROVIDERS: PCP Internal Medicine; Visit Provider Internal Medicine | DX: Z12.31 Encounter for screening mammogram for malignant neoplasm of breast (principal) | CPT/HCPCS: 77063; 77067 ==

== ENCOUNTER → 2023-08-26 07:30 | Outpatient (BNV) | payer OTHER, SELFPAY | PROVIDERS: PCP Internal Medicine; Visit Provider Radiology Diagnostic Radiology | DX: Z12.31 Encounter for screening mammogram for malignant neoplasm of breast (principal) | CPT/HCPCS: 77063; 77067 ==

== ENCOUNTER 2023-09-11 08:46 | Outpatient (AMB) | payer OTHER, SELFPAY ==
[2023-09-11 08:54] VITALS: BP 130/80; PULSE 75; O2SAT 98; BMI 33.6
--- NOTE | 2023-09-11 08:54 | MHC.PC.OV ---
Vital Signs 09/11/23 08:54 Height 5 ft 2 in Weight 183 lb 8 oz BMI 33.6 BP 130/80 Blood Pressure Location Lt brachial Position Sitting Pulse 75 Pulse Source Pulse Oximeter Pulse Oximetry (%) 98 Oxygen Delivery Method Room Air Intake Visit Reasons: PE Intake Note: Pt is here today for her annual Physical. Last mammogram 08/26/23 Last pap 01/22/23 Last flu shot 02/24/23 Allergies No Known Allergies Allergy (Verified 09/11/23 09:20) Medication List - Last Reconciled 09/11/23 by Yas Concepcion MD blood pressure monitor As directed calcium carbonate (Calcium 600) 600 mg PO DAILY cetirizine 10 mg PO DAILY PRN ferrous sulfate 325 mg PO DAILY L.ac,bul,par,rha-B.ani,tien-inu 10 billion cell -100 mg (Probitoic Digestive Support (6 strain)) caps PO lisinopril-hydrochlorothiazide 10-12.5 mg 1 tab PO DAILY multivitamin 1 tab PO DAILY Tobacco use date assessed: 09/11/23 Dental Screening Dental Screen Date: 09/11/23 Did you have a dental visit in the last 12 months?: No Did you have a dental problem in the last 6 months where you did not have access to dental care?: No Was dental information given to patient?: Patient has dentist HPI PE HPI Details 48-year-old lady here today for her physical exam. She is up-to-date with her screening mammogram, had a Pap smear last done a year ago with negative findings, she had a screening colonoscopy done earlier this year with removal of 2 polyps, done by Dr. Huggins, to be repeated again in 5 years. She has hypertension, currently stable and controlled on lisinopril-HCTZ. She is up-to-date with her eye exam and vaccinations. Has been feeling well with no complaints at present time [facility] Medical History (Updated 09/11/23 @ 09:36 by Yas Concepcion MD) Hypertriglyceridemia Essential hypertension Dyslipidemia Environmental and seasonal allergies Obesity (BMI 30.0-34.9) Fluctuating blood pressure Family history of early CAD Surgical History (Updated 09/11/23 @ 09:28 by Yas Concepcion MD) History of loop electrical excision procedure (LEEP) Hx of hand surgery Family History Paternal Grandfather Acute posterior myocardial infarction, Onset Age: 62 Paternal Grandmother CAD (coronary artery disease), Onset Age: 62 Paternal Aunt CAD (coronary artery disease), Onset Age: 68 Father Pancreatic cancer Substance use disorder Mental health disorder Mother Mental health disorder Other TIA (transient ischemic attack) Social History Housing: House Alcohol intake: current Alcohol intake frequency: does not drink Patient Tobacco Use Status: Never used Tobacco e-Cigarette/Vaping Use: Never Used service: No Current occupational status: employed Cognitive needs: No Hearing needs: No Vision needs: Yes Female Reproductive History Menstrual Age of Menarche: 16 Date of last menstrual period: 09/05/23 control method: none Total pregnancies: 1 Full term: 1 Questionnaire PHQ-9 Over the last 2 weeks, how often have you been bothered by any of the following problems? 1. Little interest or pleasure in doing things: not at all 2. Feeling down, depressed, or hopeless: not at all 3. Trouble falling or staying asleep, or sleeping too much: not at all 4. Feeling tired or having little energy: not at all 5. Poor appetite or overeating: not at all 6. Feeling bad about yourself - or that you are a failure or have let yourself or your family down: not at all 7. Trouble concentrating on things, such as reading the newspaper or watching television: several days 8. Moving or speaking so slowly that other people could have noticed. Or the opposite - being so fidgety or restless that you have been moving around a lot more than usual: not at all 9. Thoughts that you would be better off or of hurting yourself in some way: not at all Total score: 1 Depression Screening Interpretation: Negative Depression Screening Done: Yes 40061 - PHQ-9 Billing: Yes Source: Developed by Drs. Collin Mello, Jesusita Rodriguez, Jeevan Crooks and colleagues, with an educational jesús from [employer]. Thrive Questionnaire Date Thrive assessed: 09/11/23 I am a: Patient Within the past 12 months, did the food you bought not last and you didn't have the money to get more?: Never true Within the past 12 months, did you worry whether your food would run out before you got money to buy more?: Never true Do you have trouble paying for medicines?: No Do you have trouble getting transportation to medical appointments?: No Do you have trouble paying your heating and electricity bill?: No Do you have trouble taking care of your child, family member or friend?: No Do you have trouble with day-to-day activities such as bathing, preparing meals, shopping, managing finances, etc.?: No Are you currently unemployed and looking for a job?: No Are you interested in more education?: No THRIVE Score: 0 AUDIT C Alcohol Use Questionnaire (AUDIT-C) 1. How often do you have a drink containing alcohol?: Never 3. How often do you have six or more drinks on one occasion?: Never Total Score: 0 Score Reviewed/Action Taken: Yes VIJAY-7 AMB Questionnaire VIJAY-7 Date VIJAY - 7 assessed: 09/11/23 Feeling nervous, anxious, or on edge: 1 = Several days Not being able to stop or control worryin = Not at all Worrying too much about different things: 1 = Several days Trouble relaxin = Several days Being so restless that it is hard to sit still: 0 = Not at all Becoming easily annoyed or irritable: 0 = Not at all Feeling afraid as if something awful might happen: 0 = Not at all Total VIJAY-7 score (0-4 normal; 5-9 mild; 10-14 moderate; 15-21 severe): 3 Source: Developed by Drs. Collin Mello, Jesusita Rodriguez, Jeevan Crooks and colleagues, with an educational jesús from [employer]. Review of Systems Const Denies body aches, Denies fatigue, Denies fever(s), Denies headache(s) and Denies weakness Eyes Details: Up-to-date with her eye exam goes to [facility], wears glasses Denies change in vision, Denies eye discharge and Denies itchy eyes ENT Reports Normal hearing present, Denies dizziness, Denies headache(s), Denies nasal congestion, Denies nasal discharge and Denies sore throat Card Denies chest pain, Denies lightheadedness, Denies palpitations and Denies dyspnea Resp Denies chest congestion, Denies cough, Denies dyspnea and Denies wheezing GI Denies abdominal pain, Denies change in bowel habits and Denies heartburn Denies hematuria, Denies urinary frequency, Denies dysuria and Denies urinary urgency Musc Reports no additional complaints Skin/Breast Denies breast pain, Denies breast mass, Denies lesions and Denies rash Neuro Reports Normal hearing present, Denies Abnormal speech present, Denies dizziness, Denies headache(s) and Denies weakness Psych Reports no additional complaints Endo Denies fatigue, Denies polydipsia, Denies polyuria and Denies palpitations Dandre/Lymph Denies easy bruising Aller/Immun Denies itchy eyes, Denies seasonal rhinorrhea and Denies wheezing Physical exam (Primary Care) Vital Signs: Last Vital Signs Pulse 75 09/11/23 08:54 BP 130/80 09/11/23 08:54 Pulse Ox 98 09/11/23 08:54 Oxygen Delivery Method Room Air 09/11/23 08:54 BMI result Body Mass Index 33.6 BMI Assessment/Plan discussion: High BMI High, discussed plan: lifestyle, weight reduction, dietary and physical activity Tobacco/Smoking Status: Tobacco use Status Tobacco use date assessed 09/11/23 09/11/23 08:57 Patient Tobacco Use Status Never used Tobacco 09/11/23 08:57 e-Cigarette/Vaping Use Never Used 09/11/23 08:57 Depression Screening Interpretation: Negative Thrive Assessment: Date of Thrive Assessment Date Thrive assessed 09/05/22 09/11/23 08:57 Advance Care Planning discussion: Exists, not on file Date of discussion: 09/11/23 Who was present: Patient Forms completed: Health Care Proxy Time spent: 1-15 minutes, not on file Actual minutes spent: 15 Const General: no acute distress, alert and awake Nutritional Appearance: obese Orientation/consciousness: patient oriented x3 HENMT Head: Yes normocephalic General nose exam: Normal external nose present Face and sinus: Yes face symmetric Mouth: Normal oral and palatal mucosa present, oropharynx normal and moist mucous membranes Eyes General: appearance normal, both eyes and all related structures Neck Neck: Yes full ROM, Yes no lymphadenopathy and Yes supple Thyroid: Thyroid normal Chest Chest palpation & inspection: normal inspection of the chest Breast/axilla palpation: normal palpation of the breasts Resp Effort & Inspection: normal respiratory effort and able to speak in complete sentences Auscultation: clear to auscultation bilaterally Cardio Palpation: normal PMI Rate: regular rate Rhythm: regular rhythm Heart sounds: S1 normal heart sound present and S2 normal heart sound present GI Inspection: Yes normal to inspection Palpation (GI): Soft to palpation, nontender, no guarding and no masses Auscultation: normal bowel sounds General: Yes no CVA tenderness and Yes deferred Back/Spine/Pelvis Back: no CVA tenderness and No back tenderness Cervical Spine: cervical ROM normal Thoracic/Lumbar Spine: thoracic and lumbar spine normal to inspection Skin General skin exam: no rashes or lesions noted and other (Tattoo on lower back and arms) Hair: normal Nails: normal Neuro General: patient oriented x3 Cranial nerves: Yes Normal hearing present Speech: No Abnormal speech present Assessment and Plan Assessment & Plan (1) Annual visit for general adult medical examination with abnormal findings: Code(s): Z00.01 - Encounter for general adult medical examination with abnormal findings Plan: Will check appropriate labs. Continue regular dental visit every 6 months and regular eye exams, at least every 2 years. Take adequate calcium in diet and vitamin-D 3 at 2000 IU per cap once a day, in addition to weight-bearing exercises to help maintain good muscle tone and weight control. Instructed to do self-breast exam, and continue yearly mammogram, , up-to-date with her cervical cancer screening, goes to [facility], last Pap was done in 2022 with negative findings. Up-to-date with all her vaccinations, up-to-date with her screening colonoscopy done May [address] Huggins, to be repeated again in 5 years (2) Essential hypertension: Code(s): I10 - Essential (primary) hypertension Plan: Blood pressure stable controlled on lisinopril-HCTZ will continue. . Reinforced importance of following a low sodium diet, getting regular exercise, and lowering stress levels. (3) Obesity (BMI 30.0-34.9): Code(s): E66.9 - Obesity, unspecified Plan: Recommended focusing on improving your health instead of dieting. : Eat Mediterranean diet, limit foods high in fat, sugar, and calories, eat slowly, pay attention to portion sizes, plan your meals ahead of time, start regular physical activity 150 minutes of moderate intensity exercise or 90 minutes/week of vigorous exercise (4) Environmental and seasonal allergies: Code(s): J30.89 - Other allergic rhinitis Plan: Takes Zyrtec as needed (5) Hypertriglyceridemia: Code(s): E78.1 - Pure hyperglyceridemia Plan: fasting lipid profile ordered . Stressed importance of adherence to low-cholesterol diet and regular exercise, at least 30 minutes 3 to 4 times a week. Advised patient to make healthy food choices, eat more fruits, vegetables, whole grains, wild caught fish and low-fat dairy. Limit amount of meat and fried or fatty food products, as well as processed foods and fast foods. Orders: Orders Aspartate Amino Transferase Today E66.9 - Obesity, unspecified, E78.1 - Pure hyperglyceridemia, I10 - Essential (primary) hypertension, Z00.01 - Encounter for general adult medical examination with abnormal findings Basic Metabolic Panel Fasting Today E66.9 - Obesity, unspecified, E78.1 - Pure hyperglyceridemia, I10 - Essential (primary) hypertension, Z00.01 - Encounter for general adult medical examination with abnormal findings Lipid Panel Today E66.9 - Obesity, unspecified, E78.1 - Pure hyperglyceridemia, I10 - Essential (primary) hypertension, Z00.01 - Encounter for general adult medical examination with abnormal findings Alanine Aminotransferase Today E66.9 - Obesity, unspecified, E78.1 - Pure hyperglyceridemia, I10 - Essential (primary) hypertension, Z00.01 - Encounter for general adult medical examination with abnormal findings Hemoglobin and Hematocrit Today E66.9 - Obesity, unspecified, E78.1 - Pure hyperglyceridemia, I10 - Essential (primary) hypertension, Z00.01 - Encounter for general adult medical examination with abnormal findings Vitamin D 25-OH Total Today E66.9 - Obesity, unspecified, E78.1 - Pure hyperglyceridemia, I10 - Essential (primary) hypertension, Z00.01 - Encounter for general adult medical examination with abnormal findings Coding Level of Care Code Est Pt Prev Care 40-64y([id number]) Diagnoses Annual visit for general adult medical examination with abnormal findings Z00.01 Essential hypertension I10 Obesity (BMI 30.0-34.9) E66.9 Environmental and seasonal allergies J30.89 Hypertriglyceridemia E78.1 Additional Codes Vital Signs *Quality* - Advance Care Planning discussion: Exists, not on file ([id number]) Vital Signs *Quality* - Time spent: 1-15 minutes, not on file ([id number])
== END 2023-09-11 09:43 | disposition home or self-care (01) ==
PROVIDERS: PCP Internal Medicine; Visit Provider Internal Medicine
DX: Z00.00 Encounter for general adult medical examination without abnormal findings (principal); Z68.33 Body mass index [BMI] 33.0-33.9, adult; I10 Essential (primary) hypertension; E66.9 Obesity, unspecified; J30.89 Other allergic rhinitis; E78.1 Pure hyperglyceridemia
CPT/HCPCS: 1124F; 99396

== ENCOUNTER 2023-09-11 09:44 | Outpatient (REF) | payer OTHER, SELFPAY ==
[2023-09-11 13:47] LABS: Hematocrit 40.1 % (37.0-47.0); Hemoglobin 13.3 g/dl (12.0-16.0)
[2023-09-11 14:05] LABS: Alanine Aminotransferase 20 U/L (0-31); Anion Gap 14 (12-20); Aspartate Amino Transferase 20 U/L (5-31); Blood Urea Nitrogen 12 mg/dL (9-16); Calcium 9.4 mg/dL (8.4-10.2); Carbon Dioxide 25 mmol/L (22-29); Chloride 104 mmol/L (96-108); Cholesterol 217 mg/dL (<200); Estimated Glomerular Filt Rate > 60; Glucose Fasting 83 mg/dL (60-99); HDL Cholesterol 40 mg/dL (>40); LDL Cholesterol Calculated 127 mg/dL (<100); Potassium 3.7 mmol/L (3.3-5.1); Sodium 139 mmol/L (135-145); Triglycerides 254 mg/dL (<150)
[2023-09-11 14:25] LABS: Vitamin D 25-OH Total 51.5 ng/mL (>30)
== END 2023-09-11 09:45 | disposition home or self-care (01) ==
LOC: HO.HMGCLDS 09:44
PROVIDERS: PCP Internal Medicine; Visit Provider Internal Medicine
DX: Z00.01 Encounter for general adult medical examination with abnormal findings (principal); I10 Essential (primary) hypertension; E78.1 Pure hyperglyceridemia; E66.9 Obesity, unspecified
CPT/HCPCS: 36415; 80048; 80061; 82306; 84450; 84460; 85014; 85018

== ENCOUNTER 2024-09-08 07:20 | Outpatient (REF) | payer BC, SELFPAY | END 2024-09-08 07:21 | disposition home or self-care (01) | LOC: HO.MAMMO 07:20 | PROVIDERS: PCP Internal Medicine; Visit Provider Internal Medicine | DX: Z12.31 Encounter for screening mammogram for malignant neoplasm of breast (principal) | CPT/HCPCS: 77063; 77067 ==

== ENCOUNTER → 2024-09-08 07:30 | Outpatient (BNV) | payer BC, SELFPAY | PROVIDERS: PCP Internal Medicine; Visit Provider Internal Medicine | DX: Z12.31 Encounter for screening mammogram for malignant neoplasm of breast (principal) | CPT/HCPCS: 77063; 77067 ==

== ENCOUNTER 2024-09-23 07:40 | Outpatient (REF) | payer BC, SELFPAY ==
[2024-09-23 10:18] LABS: MANUAL DIFF FLAG NO
[2024-09-23 10:24] LABS: Basophils Absolute Auto 0.1 X10*3/uL (0.0-0.2); Basophils Percent Auto 0.9 % (0-2); Eosinophils Absolute Auto 0.3 X10*3/uL (0.0-0.4); Eosinophils Percent Auto 4.6 % (0-4); Imm Gran Abs Auto 0.05 X10*3/uL (0.00-0.03); Imm Gran Pct Auto 0.7 % (0.0-0.4); Lymphocytes Absolute Auto 1.8 X10*3/uL (1.2-4.9); Lymphocytes Percent Auto 27.2 % (20-40); Mean Corpuscular HGB Conc 33.3 g/dl (31.0-35.0); Mean Corpuscular Hemoglobin 29.2 pg (27.0-33.0); Mean Corpuscular Volume 87.5 fL (80.0-98.0); Mean Platelet Volume 9.8 fL (9.4-12.3); Monocytes Absolute Auto 0.7 X10*3/uL (0.1-1.2); Monocytes Percent Auto 10.6 % (2-11); Neutrophils Absolute Auto 3.8 x10*3/uL (2.0-8.3); Platelet Count 406 X10*3/uL (160-400); Red Cell Distribution Width 12.2 % (11.0-16.0); White Blood Count 6.8 X10*3/uL (4.8-10.8)
[2024-09-23 11:36] LABS: Alanine Aminotransferase 13 U/L (0-31); Anion Gap 13 (12-20); Aspartate Amino Transferase 23 U/L (5-31); Blood Urea Nitrogen 18 mg/dL (9-16); Calcium 9.6 mg/dL (8.4-10.2); Carbon Dioxide 24 mmol/L (22-29); Chloride 107 mmol/L (96-108); Cholesterol 198 mg/dL (<200); Estimated Glomerular Filt Rate > 60; Glucose Fasting 88 mg/dL (60-99); HDL Cholesterol 40 mg/dL (>40); Iron 83 mcg/dL (30-160); LDL Cholesterol Calculated 109 mg/dL (<100); Percent Iron Saturation 25 % (15-50); Potassium 4.4 mmol/L (3.3-5.1); Sodium 140 mmol/L (135-145); Total Iron Binding Capacity 328 mcg/dL (228-428); Triglycerides 245 mg/dL (<150); Unsaturated Iron Binding 245 ug/dL
[2024-09-23 11:50] LABS: Ferritin 23 ng/mL (10-250)
== END 2024-09-23 07:41 | disposition home or self-care (01) ==
LOC: HO.HMGCLDS 07:40
PROVIDERS: PCP Internal Medicine; Visit Provider Internal Medicine
DX: E78.1 Pure hyperglyceridemia (principal); I10 Essential (primary) hypertension; E66.9 Obesity, unspecified
CPT/HCPCS: 36415; 80048; 80061; 82728; 83540; 84450; 84460; 85025

== ENCOUNTER 2024-09-28 10:50 | Outpatient (AMB) | payer BC, SELFPAY ==
--- NOTE | 2024-09-28 11:04 | A.OFFPC_ITS ---
Vital Signs 09/28/24 11:13 Height 5 ft 2 in Weight 186 lb BMI 34.0 BP 132/80 Blood Pressure Location Rt brachial Position Sitting Respiration 14 Pulse 75 Pulse Source Pulse Oximeter Temp 98.3 F Temp Source Oral Pulse Oximetry (%) 99 Oxygen Delivery Method Room Air Intake Visit Reasons: PE Intake Note: Pt is here today for her PE: Last mammogram 09/08/24, papsmear 01/22/23, colonoscopy . Allergies No Known Allergies Allergy (Verified 10/03/24 20:14) Medication List - Last Reconciled 10/03/24 by Yas Concepcion MD biotin mcg PO blood pressure monitor As directed calcium carbonate (Calcium 600) 700 mg PO DAILY cetirizine 10 mg PO DAILY PRN ferrous sulfate 325 mg PO DAILY L.ac,bul,par,rha-B.ani,tien-inu 10 billion cell -100 mg (Probitoic Digestive Support (6 strain)) caps PO lisinopril-hydrochlorothiazide 10-12.5 mg 1 tab PO DAILY magnesium glycinate mg PO multivitamin 1 tab PO DAILY Tobacco use date assessed: 09/28/24 Dental Screening Dental Screen Date: 09/28/24 Did you have a dental visit in the last 12 months?: No Did you have a dental problem in the last 6 months where you did not have access to dental care?: No Was dental information given to patient?: Patient has dentist HPI PE HPI Details 49-year-old lady with history of hyperte nsion anemia and allergic rhinitis, here today for her physical exam. She is up-to-date with her breast cancer screening colon cancer screening and cervical cancer screening all of which came back with negative findings..\ Blood pressure stable and controlled on present treatment with lisinopril-HCTZ taken once daily. Has been feeling well, with no complaints at present time. [facility] Medical History (Updated 09/11/23 @ 09:36 by Yas Concepcion MD) Hypertriglyceridemia Essential hypertension Dyslipidemia Environmental and seasonal allergies Obesity (BMI 30.0-34.9) Fluctuating blood pressure Family history of early CAD Surgical History (Updated 09/11/23 @ 09:28 by Yas Concepcion MD) History of loop electrical excision procedure (LEEP) Hx of hand surgery Family History Paternal Grandfather Acute posterior myocardial infarction, Onset Age: 62 Paternal Grandmother CAD (coronary artery disease), Onset Age: 62 Paternal Aunt CAD (coronary artery disease), Onset Age: 68 Father Pancreatic cancer Substance use disorder Mental health disorder Mother Mental health disorder Other TIA (transient ischemic attack) Social History Housing: House Alcohol intake: current Alcohol intake frequency: does not drink Patient Tobacco Use Status: Never used Tobacco e-Cigarette/Vaping Use: Never Used service: No Current occupational status: employed Cognitive needs: No Hearing needs: No Vision needs: Yes Female Reproductive History Menstrual Age of Menarche: 16 Questionnaire PHQ-9 Over the last 2 weeks, how often have you been bothered by any of the following problems? 1. Little interest or pleasure in doing things: several days 2. Feeling down, depressed, or hopeless: several days 3. Trouble falling or staying asleep, or sleeping too much: more than half the days 4. Feeling tired or having little energy: several days 5. Poor appetite or overeating: more than half the days 6. Feeling bad about yourself - or that you are a failure or have let yourself or your family down: not at all 7. Trouble concentrating on things, such as reading the newspaper or watching television: several days 8. Moving or speaking so slowly that other people could have noticed. Or the opposite - being so fidgety or restless that you have been moving around a lot more than usual: not at all 9. Thoughts that you would be better off or of hurting yourself in some way: not at all Total score: 8 Depression Screening Interpretation: Negative Depression Screening Done: Yes 25349 - PHQ-9 Billing: Yes Source: Developed by Drs. Collin Mello, Jesusita Rodriguez, Jeevan Crooks and colleagues, with an educational jesús from [email or web address]. Thrive Questionnaire Date Thrive assessed: 09/28/24 I am a: Patient What is your living situation today?: I have a steady place to live Within the past 12 months, did the food you bought not last and you didn't have the money to get more?: Never true Within the past 12 months, did you worry whether your food would run out before you got money to buy more?: Never true Do you have trouble paying for medicines?: No Do you have trouble getting transportation to medical appointments?: No Do you have trouble paying your heating and electricity bill?: No Do you have trouble taking care of your child, family member or friend?: No Do you have trouble with day-to-day activities such as bathing, preparing meals, shopping, managing finances, etc.?: No Are you currently unemployed and looking for a job?: No Are you interested in more education?: No Please select the resources that you would like help with: None Currently or been in a relationship where the following occur: No concerns reported THRIVE Score: 0 AUDIT C Alcohol Use Questionnaire (AUDIT-C) 1. How often do you have a drink containing alcohol?: 2-4 times a month 2. How many drinks containing alcohol do you have on a typical day when you are drinking?: 1 or 2 3. How often do you have six or more drinks on one occasion?: Never Total Score: 2 VIJAY-7 AMB Questionnaire VIJAY-7 Date VIJAY - 7 assessed: 09/28/24 Feeling nervous, anxious, or on edge: 1 = Several days Not being able to stop or control worryin = Several days Worrying too much about different things: 2 = More than half the days Trouble relaxin = More than half the days Being so restless that it is hard to sit still: 0 = Not at all Becoming easily annoyed or irritable: 1 = Several days Feeling afraid as if something awful might happen: 1 = Several days Total VIJAY-7 score (0-4 normal; 5-9 mild; 10-14 moderate; 15-21 severe): 8 Source: Developed by Drs. Collin Mello, Jesusita Rodriguez, Jeevan Crooks and colleagues, with an educational jesús from [email or web address]. VIJAY-7 Assessment Billing VIJAY-7 Assessment Tool: VIJAY-7 Assessment 45460 Review of Systems Const Denies body aches, Denies fatigue, Denies fever(s), Denies headache(s) and Denies weakness Eyes Details: Sees an eye doctor in [place] Denies change in vision, Denies eye discharge and Denies itchy eyes ENT Details: Has an appointment for her routine dental prophylaxis already scheduled Reports Normal hearing present, Denies dizziness, Denies headache(s), Denies nasal congestion, Denies nasal discharge and Denies sore throat Card Denies chest pain, Denies lightheadedness, Denies palpitations and Denies dyspnea Resp Denies chest congestion, Denies cough, Denies dyspnea and Denies wheezing GI Denies abdominal pain, Denies change in bowel habits and Denies heartburn Denies hematuria, Denies urinary frequency, Denies dysuria and Denies urinary urgency Musc Reports no additional complaints Skin/Breast Denies breast pain, Denies breast mass, Denies lesions and Denies rash Neuro Reports Normal hearing present, Denies Abnormal speech present, Denies dizziness, Denies headache(s) and Denies weakness Psych Reports no additional complaints Endo Denies fatigue, Denies polydipsia, Denies polyuria and Denies palpitations Dandre/Lymph Denies easy bruising Aller/Immun Denies itchy eyes, Denies seasonal rhinorrhea and Denies wheezing Physical exam (Primary Care) Vital Signs: Last Vital Signs Temp 98.3 F 09/28/24 11:13 Pulse 75 09/28/24 11:13 Resp 14 09/28/24 11:13 BP 132/80 09/28/24 11:13 Pulse Ox 99 09/28/24 11:13 Oxygen Delivery Method Room Air 09/28/24 11:13 BMI result Body Mass Index 34.0 BMI Assessment/Plan discussion: High BMI High, discussed plan: lifestyle, weight reduction, dietary and physical activity Tobacco/Smoking Status: Tobacco use Status Tobacco use date assessed 09/28/24 09/28/24 11:06 Patient Tobacco Use Status Never used Tobacco 09/28/24 11:06 e-Cigarette/Vaping Use Never Used 09/28/24 11:06 PHQ-9: PHQ-9 Score PHQ-9: Total score 8 09/28/24 11:52 Depression Screening Interpretation: Negative Thrive Assessment: Date of Thrive Assessment Date Thrive assessed 09/28/24 09/28/24 11:06 Currently or been in a relationship where the following occur: No concerns reported Advance Care Planning discussion: Completed/Scanned Date of discussion: 09/28/24 Who was present: Patient Forms completed: Health Care Proxy Time spent: 16-45 minutes Actual minutes spent: 2 Const General: no acute distress, alert and awake Nutritional Appearance: obese Orientation/consciousness: patient oriented x3 HENMT Head: Yes normocephalic General nose exam: Normal external nose present Face and sinus: Yes face symmetric Mouth: Normal oral and palatal mucosa present, oropharynx normal and moist mucous membranes Eyes General: appearance normal, both eyes and all related structures Neck Neck: Yes full ROM, Yes no lymphadenopathy and Yes supple Thyroid: Thyroid normal Chest Chest palpation & inspection: normal inspection of the chest Breast/axilla palpation: normal palpation of the breasts Resp Effort & Inspection: normal respiratory effort and able to speak in complete sentences Auscultation: clear to auscultation bilaterally Cardio Palpation: normal PMI Rate: regular rate Rhythm: regular rhythm Heart sounds: S1 normal heart sound present and S2 normal heart sound present GI Inspection: Yes normal to inspection Palpation (GI): Soft to palpation, nontender, no guarding and no masses Auscultation: normal bowel sounds General: Yes no CVA tenderness and Yes deferred Back/Spine/Pelvis Back: no CVA tenderness and No back tenderness Cervical Spine: cervical ROM normal Thoracic/Lumbar Spine: thoracic and lumbar spine normal to inspection Skin General skin exam: no rashes or lesions noted and other (Tattoo on lower back and arms) Hair: normal Nails: normal Neuro General: patient oriented x3 Cranial nerves: Yes Normal hearing present Speech: No Abnormal speech present Extrem General: Yes full ROM, Yes no joint enlargement and Yes no pedal edema Psych Appearance: grossly normal and well kempt Mental Status: mental status grossly normal Speech and movement: Normal speech and movement present Affect: normal affect Attitude: cooperative Thought process: Normal thought process present Results Reviewed Results Reviewed: ramona: ChelyMukund Age/Sex: 49/F : 1975 Unit#: [id number] Attend Dr: Yas Concepcion MD Re09/23/24 Status: DEP [facility] Disch: SPEC : [id number] JENNIFFER: 09/23/24 STATUS: COMP REQ : [id number] RECD: 09/23/241014 SUBM DR: aYs Concepcion MD COMP: 09/23/241136 ENTERED: 09/23/24 [facility] DR: ORDERED: Met Prof Fast, IRON PROF, Ferritin, AST, ALT, Lipid Panel Test Result Flag Reference Sodium 140 135-145 mmol/L Potassium 4.4 3.3-5.1 mmol/L CL 107 96-108 mmol/L CO2 24 22-29 mmol/L Gap 13 12-20 BUN 18 H 9-16 mg/dL Creat 0.88 0.5-1.4 mg/dL eGFR > 60 Chronic Kidney Disease: Estimated GFR < 60 mL/min/1.73m2 Severe Kidney Disease: Estimated GFR < 15 mL/min/1.73m2 FBS 88 60-99 mg/dL CA 9.6 8.4-10.2 mg/dL Iron 83 30-160 mcg/dL TIBC 328 228-428 mcg/dL Saturation 25 15-50 % UIBC 245 ug/dL Ferritin 23 10-250 ng/mL AST (GOT) 23 5-31 U/L ALT (GPT) 13 0-31 U/L Triglyceride 245 H <150 mg/dL Desirable Triglyceride: less than 150 mg/dL Borderline High Triglyceride 150-199 mg/dL High Triglyceride: 200-499 mg/dL Very High Triglyceride: greater than or equal to 5OO mg/dL Cholesterol 198 <200 mg/dL Desirable Cholesterol: less than 200 mg/dL Borderline High Cholesterol: 200-239 mg/dL High Cholesterol: greater than 239 mg/dL LDL Calculated 109 H <100 mg/dL Desirable LDL: less than 100 mg/dL Near Optimal/Above Optimal LDL: 110-129 mg/dL Borderline High LDL: 130-159 mg/dL High LDL: 160-189 mg/dL Very High LDL: greater than or equal to 190 mg/dL HDL 40 L >40 mg/dL Desirable HDL: greater than 40 mg/dL Note: This HDL assay may give artificially low results in patients with liver disease. Name: Mukund Mo Age/Sex: 49/F : 1975 Unit#: [id number] Attend Dr: Yas Concepcion MD Re09/23/24 Status: DEP REF [facility] Disch: SPEC : [id number] JENNIFFER: 09/23/24 STATUS: COMP REQ : [id number] RECD: 09/23/[address] [facility] [address]: Yas Concepcion MD COMP: 09/23/24 ENTERED: 09/23/24 [facility] : ORDERED: CBC Auto Diff Test Result Flag Reference WBC 6.8 4.8-10.8 X10*3/uL RBC 4.80 4.20-5.50 X10*6/uL HGB 14.0 12.0-16.0 g/dl HCT 42.0 37.0-47.0 % MCV 87.5 80.0-98.0 fL MCH 29.2 27.0-33.0 pg MCHC 33.3 31.0-35.0 g/dl RDW 12.2 11.0-16.0 % PLT 406 H 160-400 X10*3/uL MPV 9.8 9.4-12.3 fL Neut Pct Auto 56.0 45-73 % ImGran Pct Auto 0.7 H 0.0-0.4 % Lymp Pct Auto 27.2 20-40 % [place] Pct Auto 10.6 2-11 % Eos Pct Auto 4.6 H 0-4 % Baso Pct Auto 0.9 0-2 % NRBC Pct Auto 0.0 0.0-0.2 /100WBC ANC Neut Abs # 3.8 2.0-8.3 x10*3/uL ImGran Abs Auto 0.05 H 0.00-0.03 X10*3/uL Lymph Abs Auto 1.8 1.2-4.9 X10*3/uL [place] Abs Auto 0.7 0.1-1.2 X10*3/uL Eos Abs Auto 0.3 0.0-0.4 X10*3/uL Baso Abs Auto 0.1 0.0-0.2 X10*3/uL NRBC Abs Auto 0.000 0.0-0.012 X10*3/uL Coding Level of Care Code Est Pt Prev Care 40-64y(19634) Diagnoses Annual visit for general adult medical examination with abnormal findings Z00.01 Hypertriglyceridemia E78.1 Essential hypertension I10 Environmental and seasonal allergies J30.89 Obesity (BMI 30.0-34.9) E66.9 Advanced directives, counseling/discussion Z71.89 Additional Codes PHQ-9 - 73306 - PHQ-9 Billing: Yes ([id number]) Vital Signs *Quality* - Advance Care Planning discussion: Completed/Scanned ([id number]) Vital Signs *Quality* - Time spent: 16-45 minutes ([id number]) VIJAY-7 Assessment Billing - VIJAY-7 Assessment Tool: VIJAY-7 Assessment 28914 ([id number]) Assessment & Plan Assessment & Plan (1) Annual visit for general adult medical examination with abnormal findings: Code(s): Z00.01 - Encounter for general adult medical examination with abnormal findings Plan: Reviewed recent fasting lab results with patient. Continue regular dental visit every 6 months and regular eye exams, at least every 2 years. Take adequate calcium in diet and vitamin-D 3 at 2000 IU per cap once a day, in addition to weight-bearing exercises to help maintain good muscle tone and weight control. Instructed to do self-breast exam, and continue to get yearly mammogram, starting currently up-to-date, up-to-date with her cervical cancer screening and colonoscopy. Up-to-date with her vaccines (2) Hypertriglyceridemia: Code(s): E78.1 - Pure hyperglyceridemia Category: Medical Plan: Recent fasting labs showed elevated triglycerides. Reinforced importance of following a low-cholesterol diet and getting regular exercise. (3) Essential hypertension: Code(s): I10 - Essential (primary) hypertension Category: Medical Plan: Blood pressure at goal of less than 130/80. Continue with current medication. Reinforced importance of following a low sodium diet, getting regular exercise, and lowering stress levels. (4) Environmental and seasonal allergies: Code(s): J30.89 - Other allergic rhinitis Category: Medical Plan: Takes cetirizine 10 mg once a day as needed (5) Obesity (BMI 30.0-34.9): Code(s): E66.9 - Obesity, unspecified Category: Medical Plan: Discussed need to increase activity and wt reduction. Recommended focusing on improving your health instead of dieting. : Eat Mediterranean diet, limit foods high in fat, sugar, and calories, eat slowly, pay attention to portion sizes, plan your meals ahead of time, start regular physical activity 150 minutes of moderate intensity exercise or 90 minutes/week of vigorous exercise and increase water intake. (6) Advanced directives, counseling/discussion: Code(s): Z71.89 - Other specified counseling Plan: Initiated the conversation about Advanced Directives. Advanced Directives help patients prepare for current and future decisions about their medical treatment and place of care. Discussed with patient that it is a process where a patients current condition and prognosis are reviewed, their wishes for information regarding their illness are elicited, and likely medical dilemmas are presented and options discussed. Healthcare proxy form completed today. The form can be amended as needed, reviewed yearly and make changes as needed Orders: Orders Lipid Panel 1 Year E66.9 - Obesity, unspecified, E78.1 - Pure hyperglyceridemia, I10 - Essential (primary) hypertension Basic Metabolic Panel Fasting 1 Year E66.9 - Obesity, unspecified, E78.1 - Pure hyperglyceridemia, I10 - Essential (primary) hypertension Aspartate Amino Transferase 1 Year E66.9 - Obesity, unspecified, E78.1 - Pure hyperglyceridemia, I10 - Essential (primary) hypertension Alanine Aminotransferase 1 Year E66.9 - Obesity, unspecified, E78.1 - Pure hyperglyceridemia, I10 - Essential (primary) hypertension Vitamin D 25-OH Total 1 Year E66.9 - Obesity, unspecified, E78.1 - Pure hyperglyceridemia, I10 - Essential (primary) hypertension
[2024-09-28 11:13] VITALS: BP 132/80; PULSE 75; RESP 14; TEMP 36.8; O2SAT 99; BMI 34.0
== END 2024-09-28 12:45 | disposition home or self-care (01) ==
PROVIDERS: PCP Internal Medicine; Visit Provider Internal Medicine
DX: Z00.00 Encounter for general adult medical examination without abnormal findings (principal); E78.1 Pure hyperglyceridemia; E66.9 Obesity, unspecified; Z68.34 Body mass index [BMI] 34.0-34.9, adult; I10 Essential (primary) hypertension; J30.89 Other allergic rhinitis; Z71.89 Other specified counseling

== ENCOUNTER → 2024-09-28 10:50 | Outpatient (BNVA) | payer BC, SELFPAY | PROVIDERS: PCP Internal Medicine; Visit Provider Internal Medicine | DX: Z00.01 Encounter for general adult medical examination with abnormal findings (principal); I10 Essential (primary) hypertension; E78.1 Pure hyperglyceridemia; J30.89 Other allergic rhinitis; E66.9 Obesity, unspecified; Z68.34 Body mass index [BMI] 34.0-34.9, adult; Z71.89 Other specified counseling | CPT/HCPCS: 96127 ==